=== PATIENT | male | born 1990 | race Caucasian/White ===

== ENCOUNTER 2016-12-16 12:13 | Emergency (ER) | payer OTHER, MEDICARE, MEDICAID ==
[~2016-12-16] VITALS: Ht 167.6 cm; Wt 54.5 kg
[2016-12-16] MEDS ORDERED: RISP3 PO (13:03)
[2016-12-16 13:31] VITALS: BP 119/72
[2016-12-16 13:33] LABS: BASOPHILS % (AUTO) 0.3 % (0.0-2.0); EOSINOPHILS % (AUTO) 0.8 % (1.0-6.0); HEMATOCRIT 44.1 % (41-53); HEMOGLOBIN 15.1 g/dL (13.5-17.5); LYMPHOCYTES % (AUTO) 12.4 % (22.0-44.0); MEAN CORPUSCULAR HEMOGLOBIN 30.4 pg (26.0-34.0); MEAN CORPUSCULAR HGB CONC 34.1 G/dL (31.0-37.0); MEAN CORPUSCULAR VOLUME 89 fL (80-100); MONOCYTES # (AUTO) 0.5 K/uL (0.1-1.0); MONOCYTES % (AUTO) 6.5 % (2.0-9.0); NEUTROPHILS # (AUTO) 6.5 K/uL (1.8-7.7); PLATELET COUNT (AUTO) 202 K/uL (150-450); RED BLOOD CELL COUNT(AUTO) 4.96 MIL/uL (4.50-5.90); RED CELL DISTRIBUTION WIDTH 13.4 % (11.5-14.5); WHITE BLOOD COUNT (AUTO) 8.2 K/uL (4.5-11.0)
[2016-12-16 13:42] LABS: ANION GAP 9 mmol/L (8-16); CARBON DIOXIDE 27 mmol/L (22-29); CHLORIDE 104 mmol/L (98-107); CREATININE 1.01 mg/dL (0.60-1.30); GLOMERULAR FILTR. RATE CALC > 60 mL/min (>60); POTASSIUM 3.9 mmol/L (3.5-5.1); SODIUM SERUM 140 mmol/L (136-145); UREA NITROGEN, BLOOD 8 mg/dL (7-18)
[2016-12-16 13:49] LABS: ALANINE AMINOTRANSFERASE 15 U/L (12-78); ALBUMIN 4.4 g/dL (3.4-5.0); ASPARTATE AMINOTRANSFERASE 19 U/L (15-37); BILIRUBIN,TOTAL 0.5 mg/dL (0.1-1.0); TOTAL PROTEIN, SERUM 7.5 g/dL (6.4-8.2)
== END 2016-12-16 18:16 | disposition short-term general hospital (02) ==
LOC: EMS 12:15
DX: F20.9 Schizophrenia, unspecified (principal); F17.210 Nicotine dependence, cigarettes, uncomplicated; F12.90 Cannabis use, unspecified, uncomplicated
CPT/HCPCS: 36415; 80053; 80307; 85025; 99285; G0480

== ENCOUNTER 2017-02-18 10:44 | Emergency (ER) | payer OTHER, MEDICARE ==
[~2017-02-18] VITALS: Ht 167.6 cm; Wt 59.1 kg
[~2017-02-18 10:44] MED LIST: RISP3 PO
[2017-02-18] MEDS ORDERED: LORA1TAB3 PO (12:08)
[2017-02-18] MEDS ORDERED: RISP4 PO (12:08)
[2017-02-18] MEDS ORDERED: RISP3 PO (12:08)
[2017-02-18] MEDS ORDERED: HYD50 PO (12:08)
[2017-02-18] MEDS ORDERED: RisperiDONE 1 MG TABLET PO ONE (12:30)
[2017-02-18] MEDS ORDERED: LORazepam 2 MG TABLET PO ONE (12:30)
[2017-02-18 12:45] LABS: BASOPHILS % (AUTO) 0.5 % (0.0-2.0); EOSINOPHILS % (AUTO) 0.6 % (1.0-6.0); HEMATOCRIT 46.4 % (41-53); LYMPHOCYTES # (AUTO) 1.4 K/uL (1.0-4.8); LYMPHOCYTES % (AUTO) 18.4 % (22.0-44.0); MEAN CORPUSCULAR HEMOGLOBIN 30.8 pg (26.0-34.0); MEAN CORPUSCULAR HGB CONC 34.5 G/dL (31.0-37.0); MEAN CORPUSCULAR VOLUME 89 fL (80-100); MONOCYTES # (AUTO) 0.7 K/uL (0.1-1.0); MONOCYTES % (AUTO) 8.8 % (2.0-9.0); NEUTROPHILS # (AUTO) 5.3 K/uL (1.8-7.7); NEUTROPHILS % (AUTO) 71.7 % (40.0-70.0); PLATELET COUNT (AUTO) 208 K/uL (150-450); RED CELL DISTRIBUTION WIDTH 13.5 % (11.5-14.5); WHITE BLOOD COUNT (AUTO) 7.5 K/uL (4.5-11.0)
[2017-02-18 12:54] LABS: ANION GAP 9 mmol/L (8-16); CARBON DIOXIDE 26 mmol/L (22-29); CHLORIDE 105 mmol/L (98-107); CREATININE 0.88 mg/dL (0.60-1.30); GLOMERULAR FILTR. RATE CALC > 60 mL/min (>60); POTASSIUM 3.6 mmol/L (3.5-5.1); SODIUM SERUM 140 mmol/L (136-145); UREA NITROGEN, BLOOD 10 mg/dL (7-18)
[2017-02-18 13:03] LABS: ALANINE AMINOTRANSFERASE 27 U/L (12-78); ALBUMIN 4.3 g/dL (3.4-5.0); ASPARTATE AMINOTRANSFERASE 31 U/L (15-37); BILIRUBIN,TOTAL 0.6 mg/dL (0.1-1.0); TOTAL PROTEIN, SERUM 7.6 g/dL (6.4-8.2)
[2017-02-18 18:18] VITALS: BP 118/79
== END 2017-02-18 17:38 | disposition short-term general hospital (02) ==
LOC: EMS 10:46
DX: F20.9 Schizophrenia, unspecified (principal); F41.9 Anxiety disorder, unspecified; F17.210 Nicotine dependence, cigarettes, uncomplicated; F12.90 Cannabis use, unspecified, uncomplicated
CPT/HCPCS: 36415; 80053; 85025; 99285; G0480

== ENCOUNTER 2023-10-05 15:37 | Inpatient (IN) | payer MEDICARE, MEDICAID ==
[~2023-10-05] VITALS: Ht 167.6 cm; Wt 68.5 kg
[~2023-10-05 15:37] MED LIST changes: +HYDR-4584 PO; +LORA-1000 PO; -RISP3 PO; +RISP3TAB35 PO; +RISP4TAB94 PO
[2023-10-05] MEDS ORDERED: HALOPERIDOL LACTATE 5 MG/ML VIAL ONE (18:41)
[2023-10-05] MEDS ORDERED: LORazepam 2 MG/ML VIAL ONE (18:41)
[2023-10-05] MEDS ORDERED: DiphenhydrAMINE HCL 50 MG/ML VIAL ONE (18:41)
[2023-10-05] MEDS ORDERED: HALOPERIDOL 5 MG TABLET PO PRN (18:45)
[2023-10-05] MEDS ORDERED: ZOLPIDEM TARTRATE 10 MG TABLET PO PRN (18:45)
[2023-10-05 22:00] VITALS: BP 99/56; PULSE 73; RESP 18; TEMP 98.5; O2SAT 96
[2023-10-05] MEDS: DiphenhydrAMINE HCL 50 MG/ML VIAL IM ONE (22:17)
[2023-10-05] MEDS: LORazepam 2 MG/ML VIAL IM ONE (22:17)
[2023-10-05] MEDS: HALOPERIDOL LACTATE 5 MG/ML VIAL IM ONE (22:17)
[2023-10-06 08:23] LABS: BASOPHILS % (AUTO) 0.9 % (0.0-2.0); EOSINOPHILS % (AUTO) 5.5 % (1.0-6.0); HEMATOCRIT 43.7 % (41-53); HEMOGLOBIN 14.5 g/dL (13.5-17.5); LYMPHOCYTES # (AUTO) 2.3 K/uL (1.0-4.8); LYMPHOCYTES % (AUTO) 29.7 % (22.0-44.0); MEAN CORPUSCULAR HEMOGLOBIN 30.4 pg (26.0-34.0); MEAN CORPUSCULAR HGB CONC 33.2 G/dL (31.0-37.0); MEAN CORPUSCULAR VOLUME 92 fL (80-100); MONOCYTES # (AUTO) 0.6 K/uL (0.1-1.0); MONOCYTES % (AUTO) 7.9 % (2.0-9.0); NEUTROPHILS # (AUTO) 4.3 K/uL (1.8-7.7); PLATELET COUNT (AUTO) 252 K/uL (150-450); RED BLOOD CELL COUNT(AUTO) 4.77 MIL/uL (4.50-5.90); RED CELL DISTRIBUTION WIDTH 13.5 % (11.5-14.5); WHITE BLOOD COUNT (AUTO) 7.6 K/uL (4.5-11.0)
[2023-10-06 08:52] LABS: ALANINE AMINOTRANSFERASE 15 U/L (12-78); ALBUMIN 3.2 g/dL (3.4-5.0); ALKALINE PHOSPHATASE 69 U/L (46-116); ANION GAP 8 mmol/L (8-16); ASPARTATE AMINOTRANSFERASE 24 U/L (15-37); BILIRUBIN,TOTAL 0.4 mg/dL (0.1-1.0); CALCIUM, TOTAL 8.6 mg/dL (8.8-10.5); CARBON DIOXIDE 28 mmol/L (22-29); CHLORIDE 104 mmol/L (98-107); CHOLESTEROL 145 mg/dL (131-200); CREATININE 0.73 mg/dL (0.60-1.30); FREE T4 (FREE THYROXINE) 1.04 ng/dL (0.76-1.46); GLOMERULAR FILTR. RATE CALC > 60 mL/min (>60); GLUCOSE,RANDOM 81 mg/dL (70-110); HDL CHOLESTEROL 49 mg/dL (40-60); LDL CHOL (CALC.) 75 mg/dL (0-130); POTASSIUM 4.1 mmol/L (3.5-5.1); SODIUM SERUM 140 mmol/L (136-145); THYROID STIMULATING HORMONE 0.43 uIU/mL (0.36-3.74); TOTAL PROTEIN, SERUM 6.6 g/dL (6.4-8.2); TRIGLYCERIDES 104 mg/dL (15-150); UREA NITROGEN, BLOOD 13 mg/dL (7-18)
[2023-10-06 09:17] LABS: CARBAMAZEPINE (TEGRETOL) < 0.5 mcg/mL (4.0-12.0)
[2023-10-06] MEDS ORDERED: MAG HYDROX/ALUMINUM HYD/SIMETH ES 30 ML SUSPENSION UDCUP PO PRN (13:00)
[2023-10-06] MEDS ORDERED: MAGNESIUM HYDROXIDE SUSPENSION 30 ML UDCUP PO PRN (13:00)
[2023-10-06] MEDS ORDERED: PETROLATUM,WHITE 28 GM JELLY TP PRN (13:00)
[2023-10-06] MEDS ORDERED: ACETAMINOPHEN 325 MG TABLET PO PRN (13:00)
[2023-10-06] MEDS ORDERED: CloNIDine HCL 0.1 MG TABLET PO PRN (13:00)
[2023-10-06] MEDS ORDERED: LOPERAMIDE HCL 2 MG CAPSULE PO PRN (13:00)
[2023-10-06] MEDS ORDERED: DOCUSATE SODIUM 100 MG CAPSULE PO PRN (13:00)
[2023-10-06] MEDS ORDERED: GuaiFENesin/D-METHORPHAN [SUGAR-FREE] 200-20MG/10 ML SYRUP UDCUP PO PRN (13:00)
[2023-10-06] MEDS ORDERED: ONDANSETRON HCL 4 MG TABLET PO PRN (13:00)
[2023-10-06] MEDS ORDERED: ALBUTEROL SULFATE HFA 90 MCG/PUFF 8 GM INHALER IH PRN (13:00)
[2023-10-06] MEDS ORDERED: IBUPROFEN 400 MG TABLET PO PRN (13:00)
[2023-10-06] MEDS: HydrOXYzine HCL 25 MG TABLET PO SCH (17:31)
[2023-10-06] MEDS: LORazepam 2 MG TABLET PO PRN (17:32)
[2023-10-06 20:15] VITALS: BP 90/68; PULSE 92; RESP 16; TEMP 97.6; O2SAT 96
[2023-10-07] MEDS: RisperiDONE 3 MG TABLET PO SCH (09:03)
[2023-10-07 14:05] VITALS: BP 100/69; PULSE 88; RESP 17; TEMP 98.1; O2SAT 97
[2023-10-07 20:08] VITALS: BP 100/62; PULSE 82; RESP 16; TEMP 97.8; O2SAT 97
[2023-10-08 08:45] LABS: HEMOGLOBIN A1C 4.9 % (3.8-5.6)
[2023-10-08 08:55] LABS: CHOL/HDL RATIO 2.9 (4.2-7.3); THYROID STIMULATING HORMONE 1.54 uIU/mL (0.36-3.74)
[2023-10-08] MEDS: BENZTROPINE MESYLATE 0.5 MG TABLET PO SCH (16:56)
[2023-10-08 20:09] VITALS: BP 100/63; PULSE 72; RESP 16; TEMP 98.2; O2SAT 96
[2023-10-09] MEDS: PALIPERIDONE PALMITATE 234 MG/1.5 ML SYRINGE IM SCH (09:55)
[2023-10-09 11:09] VITALS: BP 97/60; PULSE 68; RESP 20; TEMP 95.3; O2SAT 99
[2023-10-09] MEDS: NICOTINE 14 MG/24 HOUR PATCH TD PRN (14:19)
[2023-10-09 20:42] VITALS: BP 115/70; PULSE 82; RESP 18; TEMP 97.8; O2SAT 98
[2023-10-10 08:10] VITALS: BP 100/65; PULSE 75; RESP 16; TEMP 97.6; O2SAT 96
[2023-10-10 20:26] VITALS: BP 111/68; PULSE 63; RESP 15; TEMP 97.7; O2SAT 99
[2023-10-11 08:00] VITALS: BP 119/62; PULSE 96; RESP 18; TEMP 98.4; O2SAT 98
[2023-10-11 20:27] VITALS: BP 107/67; PULSE 63; RESP 18; TEMP 97.8; O2SAT 98
[2023-10-12 08:13] VITALS: BP 105/67; PULSE 68; RESP 17; TEMP 98.6; O2SAT 97
[2023-10-12 10:46] LABS: APPEARANCE,URINE CLEAR (CLEAR); BILIRUBIN,URINE NEGATIVE (NEGATIVE); COLOR,URINE LIGHT YELLOW (YELLOW); GLUCOSE, URINE (UA) NEGATIVE (NEGATIVE); KETONES,URINE NEGATIVE (NEGATIVE); LEUKOCYTE ESTERASE ,URINE NEGATIVE (NEGATIVE); NITRATE,URINE NEGATIVE (NEGATIVE); OCCULT BLOOD,URINE NEGATIVE (NEGATIVE); PROTEIN,URINE NEGATIVE (NEGATIVE); SPECIFIC GRAVITIY, URINE 1.014 (1.003-1.030); UROBILINOGEN,URINE <=1.0 mg/dL (<=1.0)
[2023-10-12 10:52] LABS: ALCOHOL, URINE DRUG SCREEN NEGATIVE (NEGATIVE); AMPHET/METH SCREEN,URINE NEGATIVE (NEGATIVE); BARBITURATE SCREEN, URINE NEGATIVE (NEGATIVE); BENZODIAZEPINES SCREEN,URINE NEGATIVE (NEGATIVE); CANNABINOID SCREEN,URINE NEGATIVE (NEGATIVE); COCAINE SCREEN,URINE NEGATIVE (NEGATIVE); METHADONE SCREEN, URINE NEGATIVE (NEGATIVE); OPIATE SCREEN,URINE NEGATIVE (NEGATIVE); PHENCYCLIDINE SCREEN,URINE NEGATIVE (NEGATIVE)
[2023-10-12 20:10] VITALS: BP 108/70; PULSE 70; RESP 16; TEMP 98
[2023-10-13 08:23] VITALS: BP 120/66; PULSE 73; RESP 16; TEMP 97.4; O2SAT 100
[2023-10-13 20:11] VITALS: BP 116/67; PULSE 85; RESP 18; TEMP 97.4; O2SAT 100
[2023-10-14 08:30] VITALS: BP 79/70; PULSE 61; RESP 17; TEMP 98.8; O2SAT 96
[2023-10-14] MEDS ORDERED: LORazepam 1 MG TABLET PO PRN (18:45)
[2023-10-14 20:28] VITALS: BP 103/60; PULSE 76; RESP 18; TEMP 97.7; O2SAT 99
[2023-10-15 08:17] VITALS: BP 102/68; PULSE 82; RESP 18; TEMP 98.1; O2SAT 97
[2023-10-15 20:18] VITALS: BP 141/88; PULSE 96; RESP 18; TEMP 97.2; O2SAT 99
[2023-10-16 08:36] VITALS: BP 111/60; PULSE 73; RESP 17; TEMP 98; O2SAT 99
[2023-10-16 20:11] VITALS: BP 117/67; PULSE 88; RESP 22; TEMP 97.7; O2SAT 99
[2023-10-17 10:40] VITALS: BP 135/63; PULSE 94; RESP 18; TEMP 96.9; O2SAT 100
[2023-10-17 21:07] VITALS: BP 113/63; PULSE 82; RESP 18; TEMP 97.4; O2SAT 100
[2023-10-18 08:45] VITALS: BP 120/73; PULSE 89; RESP 18; TEMP 97.4; O2SAT 100
[2023-10-18 20:14] VITALS: PULSE 70; RESP 20; TEMP 99.4; O2SAT 96
[2023-10-19 08:46] VITALS: BP 101/67; PULSE 68; RESP 17; TEMP 98.9; O2SAT 100
[2023-10-19] MEDS ORDERED: LORazepam 2 MG/ML VIAL IM ONE (16:00)
[2023-10-19] MEDS ORDERED: HALOPERIDOL LACTATE 5 MG/ML VIAL IM ONE (16:00)
[2023-10-19] MEDS ORDERED: DiphenhydrAMINE HCL 50 MG/ML VIAL IM ONE (16:00)
[2023-10-19] MEDS: DiphenhydrAMINE HCL 50 MG/ML VIAL IM ONE (16:15)
[2023-10-19] MEDS: LORazepam 2 MG/ML VIAL IM ONE (16:16)
[2023-10-19] MEDS: HALOPERIDOL LACTATE 5 MG/ML VIAL IM ONE (16:16)
[2023-10-19 20:12] VITALS: BP 126/72; PULSE 107; RESP 22; TEMP 97.3; O2SAT 99
[2023-10-20 09:38] VITALS: BP 130/70; PULSE 100; RESP 20; TEMP 97.7; O2SAT 99
[2023-10-20 21:14] VITALS: BP 97/60; PULSE 75; RESP 16; TEMP 98.4; O2SAT 95
[2023-10-21 08:24] VITALS: BP 110/67; PULSE 60; RESP 17; TEMP 96.9; O2SAT 99
[2023-10-21] MEDS: TUBERCULIN, PURIFIED PROTEIN DERIVATIVE 5 TU/0.1 ML SYRINGE ID ONE (16:14)
[2023-10-21 20:55] VITALS: BP 129/67; PULSE 99; RESP 16; TEMP 98; O2SAT 98
[2023-10-22 08:57] VITALS: BP 105/66; PULSE 74; RESP 18; TEMP 98.2; O2SAT 98
[2023-10-23 08:38] VITALS: BP 89/49; PULSE 60; RESP 19; TEMP 97.2; O2SAT 97
[2023-10-23 20:14] VITALS: BP 133/87; PULSE 102; RESP 20; TEMP 97.1; O2SAT 97
[2023-10-24 10:05] VITALS: BP 94/46; PULSE 67; RESP 18; TEMP 98.6; O2SAT 96
[2023-10-24 21:54] VITALS: BP 104/64; PULSE 96; RESP 18; TEMP 96.9; O2SAT 98
[2023-10-25 08:47] VITALS: BP 104/57; PULSE 67; RESP 17; TEMP 98.1; O2SAT 96
[2023-10-25 20:39] VITALS: BP 109/67; PULSE 91; RESP 19; TEMP 97.5; O2SAT 98
[2023-10-26 08:36] VITALS: BP 130/62; PULSE 74; RESP 18; TEMP 97; O2SAT 97
[2023-10-26 20:34] VITALS: BP 131/74; PULSE 93; RESP 17; TEMP 98.3; O2SAT 98
[2023-10-27 08:33] VITALS: BP 109/63; PULSE 68; RESP 16; TEMP 97.9; O2SAT 96
[2023-10-27 22:51] VITALS: BP 99/56; PULSE 81; RESP 18; TEMP 98.2; O2SAT 95
[2023-10-28 09:31] VITALS: BP 102/63; PULSE 96; RESP 16; TEMP 98.6; O2SAT 96
[2023-10-28 20:11] VITALS: BP 113/54; PULSE 87; RESP 18; TEMP 97.3; O2SAT 99
[2023-10-29 08:00] VITALS: BP 109/63; PULSE 94; RESP 18; TEMP 97.4; O2SAT 96
[2023-10-29 21:30] VITALS: RESP 20
[2023-10-30 08:09] VITALS: BP 100/60; PULSE 73; RESP 16; TEMP 97.9; O2SAT 98
[2023-10-30 23:55] VITALS: BP 112/72; PULSE 76; RESP 18; TEMP 98; O2SAT 99
[2023-10-31 08:07] VITALS: BP 100/62; PULSE 70; RESP 16; TEMP 98; O2SAT 100
[2023-10-31 20:05] VITALS: BP 111/60; PULSE 90; RESP 16; TEMP 98.1; O2SAT 98
[2023-11-01 09:18] VITALS: BP 101/64; PULSE 77; RESP 18; TEMP 98.3; O2SAT 96
[2023-11-01 21:12] VITALS: BP 105/67; PULSE 79; RESP 18; TEMP 98.3; O2SAT 97
[2023-11-02 08:32] VITALS: BP 99/62; PULSE 99; RESP 17; TEMP 96.7; O2SAT 97
[2023-11-02 20:32] VITALS: BP 122/82; PULSE 77; RESP 18; TEMP 97.6; O2SAT 97
[2023-11-03 08:57] VITALS: BP 105/68; PULSE 60; RESP 18; TEMP 97.7; O2SAT 97
[2023-11-03 21:09] VITALS: BP 147/87; PULSE 92; RESP 18; TEMP 97.8; O2SAT 98
[2023-11-04 20:06] VITALS: BP 134/89; PULSE 93; RESP 16; TEMP 97.8; O2SAT 98
[2023-11-05 00:03] VITALS: RESP 17
[2023-11-05 08:55] VITALS: RESP 20
[2023-11-05] MEDS ORDERED: HYDR-4527 PO (15:22)
[2023-11-05] MEDS ORDERED: PALI234D IM (15:27)
[2023-11-05] MEDS ORDERED: BENZ1TAB84 PO (15:27)
[2023-11-05] MEDS ORDERED: RISP3TAB77 PO (15:28)
[2023-11-06] MEDS ORDERED: HYDR-4527 PO (08:18)
[2023-11-06] MEDS ORDERED: PALI234D IM (08:18)
[2023-11-06] MEDS ORDERED: BENZ0.5T6 PO (08:18)
== END 2023-11-05 16:00 | disposition home or self-care (01) | DRG 885 ==
LOC: B2X 18:40
PROVIDERS: ADMIT Psychiatry & Neurology Child & Adolescent Psychiatry; ATTEND Psychiatry & Neurology Child & Adolescent Psychiatry
PROC: GZHZZZZ Group Psychotherapy (ICD-10-PCS; principal; 2023-10-06)
PROC: GZ51ZZZ Individual Psychotherapy, Behavioral (ICD-10-PCS; 2023-10-06)
DX: F20.0 Paranoid schizophrenia (principal); G93.40 Encephalopathy, unspecified; I95.9 Hypotension, unspecified; E83.51 Hypocalcemia; Z91.199 Patient's noncompliance with other medical treatment and regimen due to unspecified reason
CPT/HCPCS: 80053; 80061; 80156; 80307; 81003; 83036; 84439; 84443; 85025; 87081; J1200; J1630; J2060

== ENCOUNTER 2024-05-22 14:13 | Emergency (ER) | payer MEDICARE, OTHER ==
[~2024-05-22] VITALS: Ht 167.6 cm; Wt 63.6 kg
[~2024-05-22 14:13] MED LIST changes: +BENZ-247 PO; +BENZ0.5T52 PO; +HYDR-4527 PO; -LORA-1000 PO; +PALI234D IM; -RISP3TAB35 PO; +RISP3TAB77 PO; -RISP4TAB94 PO
[2024-05-22 14:19] VITALS: BP 106/70; PULSE 102; RESP 18; TEMP 98.5; O2SAT 99
[2024-05-22] MEDS ORDERED: DIVA-111 PO (14:22)
[2024-05-22] MEDS ORDERED: OLAN10TA74 PO (14:22)
[2024-05-22] MEDS: PERTUSS(ACELL),DIPH,TET/PF 0.5 ML SYRINGE [ADULT] IM. ONE (15:25)
[2024-05-22] MEDS ORDERED: CEPH-558 PO (15:42)
[2024-05-22] MEDS ORDERED: DOXY-354 PO (15:43)
[2024-05-22] MEDS ORDERED: IBUP-1492 PO (15:45)
[2024-05-22] MEDS: CEPHALEXIN MONOHYDRATE 500 MG CAPSULE PO ONE (15:49)
[2024-05-22] MEDS: IBUPROFEN 600 MG TABLET PO ONE (15:49)
[2024-05-22] MEDS: DOXYCYCLINE HYCLATE 100 MG TABLET PO ONE (15:57)
== END 2024-05-22 16:04 | disposition home or self-care (01) ==
LOC: EMS 14:13
DX: S60.421A Blister (nonthermal) of left index finger, initial encounter (principal); F20.9 Schizophrenia, unspecified; F12.90 Cannabis use, unspecified, uncomplicated; F15.90 Other stimulant use, unspecified, uncomplicated; F17.210 Nicotine dependence, cigarettes, uncomplicated; Z23 Encounter for immunization; X58.XXXA Exposure to other specified factors, initial encounter; Y93.89 Activity, other specified; Y92.89 Other specified places as the place of occurrence of the external cause; Y99.8 Other external cause status
CPT/HCPCS: 26010; 90471; 90715; 99284